=== PATIENT | female | born 1945 | race Caucasian/White ===

== ENCOUNTER 2016-04-21 14:55 | Emergency (ER) | payer OTHER ==
[~2016-04-21] VITALS: Ht 157.5 cm; Wt 87.0 kg
[2016-04-21 15:51] LABS: EOSINOPHIL (%) 0 % (0-5); HEMATOCRIT 41.8 % (36.0-46.0); IMMATURE GRANULOCYTE (%) 0.2 % (0.0-0.7); IMMATURE GRANULOCYTE COUNT 0.3 K/uL; LYMPHOCYTE COUNT 0.6 K/uL (1.0-2.8); MCV 97.2 FL (83-99); MEAN PLAT.VOLUME 11.4 uM^3 (9.5-12.4); MONOCYTE (%) 0.5 % (3-12); MONOCYTE COUNT 0.1 K/uL (0-0.8); NEUTROPHIL (%) 94.2 % (45-76); NEUTROPHIL COUNT 11.9 K/uL (1.8-6.4); PLATELET COUNT 220 K/uL (156-360); RBC DIS.WIDTH-CV 13.6 % (11.8-14.6); RBC DIS.WIDTH-SD 47.2 % (39-53); WHITE BLOOD COUNT 12.6 K/uL (4.1-10.2)
[2016-04-21 16:08] LABS: CHLORIDE 106 mEq/L (99-109); POTASSIUM 3.9 mEq/L (3.7-5.4); SODIUM 141 mEq/L (136-147)
[2016-04-21 16:11] LABS: GLUCOSE 204 mg/dL (70-99)
[2016-04-21 16:12] LABS: ANION GAP 14 MEQ/L (2-14); TOTAL BILIRUBIN 0.6 mg/dL (0.0-1.0)
[2016-04-21 16:14] LABS: ALKALINE PHOSPHATASE 51 IU/L (3-129); GFR ESTIMATE (CALCULATED) > 59 mL/min/
[2016-04-21 16:15] LABS: UREA NITROGEN (BUN) 15 mg/dL (9-23)
[2016-04-21 18:35] VITALS: BP 153/70
== END 2016-04-21 18:36 | disposition home or self-care (01) ==
LOC: EME 14:55
PROVIDERS: Emergency Medicine
DX: R11.2 Nausea with vomiting, unspecified (principal); Z98.890 Other specified postprocedural states; Z87.891 Personal history of nicotine dependence
CPT/HCPCS: 80053; 85025; 99281; 99285; J2765

== ENCOUNTER 2016-10-16 11:30 | Inpatient (IN) | payer OTHER ==
[~2016-10-16] VITALS: Ht 157.5 cm; Wt 91.5 kg
[2016-10-16 12:38] LABS: HEMATOCRIT 37.4 % (36.0-46.0); MCH 33.2 PG (29.0-34.0); MCHC 33.7 G/DL (30.0-36.0); MCV 98.4 FL (83-99); MEAN PLAT.VOLUME 11.4 uM^3 (9.5-12.4); PLATELET COUNT 210 K/uL (156-360); RBC DIS.WIDTH-CV 13.3 % (11.8-14.6); RBC DIS.WIDTH-SD 48.8 % (39-53); WHITE BLOOD COUNT 13.2 K/uL (4.1-10.2)
[2016-10-16 12:45] LABS: INTER. NORMALIZED RATIO 1.9; PROTHROMBIN TIME 21.3 SEC (10.2-12.9)
[2016-10-16 12:51] LABS: CHLORIDE 109 mEq/L (99-109); POTASSIUM 3.5 mEq/L (3.7-5.4); SODIUM 141 mEq/L (136-147)
[2016-10-16 12:53] LABS: GLUCOSE 121 mg/dL (70-99)
[2016-10-16 12:54] LABS: ANION GAP 11 MEQ/L (2-14)
[2016-10-16 12:56] LABS: GFR ESTIMATE (CALCULATED) > 59 mL/min/
[2016-10-16 12:57] LABS: UREA NITROGEN (BUN) 16 mg/dL (9-23)
[2016-10-16] MEDS ORDERED: XARELTO20 MG PO (16:53)
[2016-10-16] MEDS ORDERED: VITAMIN E400 UNIT PO (16:53)
[2016-10-16] MEDS ORDERED: CALCIUM 500 MG1 EACH PO (16:53)
[2016-10-16] MEDS ORDERED: BLOOD PRESSURE MED PO (16:53)
[2016-10-16] MEDS ORDERED: SYNTHROID50 MCG PO (16:53)
[2016-10-16] MEDS ORDERED: VITAMIN D31000 UNIT PO (16:53)
[2016-10-16] MEDS ORDERED: STOOL SOFTENER100 MG PO (16:54)
[2016-10-16 17:42] LABS: ADD MIUA? YES; BILIRUBIN NEGATIVE; BLOOD SMALL; COLOR YELLOW ((YELLOW)); GLUCOSE (STRIP) NEGATIVE; KETONES 5; LEUKOCYTES NEGATIVE; NITRITE NEGATIVE; PROTEIN (STRIP) NEGATIVE; UROBILINOGEN 0.2 MG/DL (0.2-1.0)
[2016-10-16 17:45] LABS: BACTERIA NONE SEEN /HPF; EPITHELIAL CELLS RARE /HPF; MUCUS TRACE /LPF; RED BLOOD CELLS 0-5 /HPF (0-5); WHITE BLOOD CELLS 0-5 /HPF (0-5)
[2016-10-16 18:15] LABS: TROP-I INTERPRETATION NEGATIVE; TROPONIN-I < 0.01 ng/mL (0.0-0.30)
[2016-10-16 21:22] VITALS: BP 129/78
[2016-10-16 23:57] VITALS: BP 121/61
[2016-10-17 03:30] VITALS: BP 118/60
[2016-10-17 07:08] LABS: HEMATOCRIT 33.7 % (36.0-46.0); MCH 33.3 PG (29.0-34.0); MCHC 33.8 G/DL (30.0-36.0); MCV 98.5 FL (83-99); RBC DIS.WIDTH-CV 13.4 % (11.8-14.6); RBC DIS.WIDTH-SD 48.3 % (39-53); RED BLOOD COUNT 3.42 M/uL (3.80-5.20); WHITE BLOOD COUNT 9.2 K/uL (4.1-10.2)
[2016-10-17 07:44] LABS: ANION GAP 5 MEQ/L (2-14); CHLORIDE 107 MEQ/L (99-109); GFR ESTIMATE (CALCULATED) > 59 mL/min/; GLUCOSE 104 mg/dL (70-99); MAGNESIUM 1.7 mg/dl (1.3-2.7); POTASSIUM 3.6 MEQ/L (3.7-5.4); SAMPLE HEMOLYSIS CHECK 0; SAMPLE ICTERIC CHECK 0; SAMPLE LIPEMIA CHECK 0; SODIUM 139 MEQ/L (136-147); UREA NITROGEN (BUN) 13 mg/dL (9-23)
[2016-10-17 07:47] LABS: MEAN PLAT.VOLUME 11.1 uM^3 (9.5-12.4); PLAT.SUFFICIENCY ADEQUATE; PLATELET COUNT 193 K/uL (156-360)
[2016-10-17 08:31] VITALS: BP 130/67
[2016-10-17 11:55] VITALS: BP 131/71
[2016-10-17 15:57] VITALS: BP 120/61
[2016-10-17 20:56] VITALS: BP 126/77
[2016-10-17 23:15] VITALS: BP 145/67
[2016-10-18 03:48] VITALS: BP 143/74
[2016-10-18 08:34] VITALS: BP 143/70
[2016-10-18 11:38] VITALS: BP 142/67
[2016-10-18 15:54] VITALS: BP 130/63
[2016-10-18 16:50] LABS: INTER. NORMALIZED RATIO 1.1; PROTHROMBIN TIME 11.8 SEC (10.2-12.9)
[2016-10-18 16:53] LABS: PTT 27.6 SEC (25-37)
[2016-10-18 19:59] VITALS: BP 143/70
[2016-10-19 04:26] VITALS: BP 146/72
[2016-10-19 08:21] VITALS: BP 119/67
[2016-10-19 12:10] VITALS: BP 105/65
[2016-10-19 16:42] VITALS: BP 107/59
[2016-10-19 19:05] VITALS: BP 117/56
[2016-10-19 23:05] VITALS: BP 108/57
[2016-10-20 02:41] VITALS: BP 126/68
[2016-10-20 08:02] VITALS: BP 116/62
[2016-10-20 11:52] VITALS: BP 117/68
[2016-10-20 15:45] VITALS: BP 108/56
[2016-10-20 19:09] VITALS: BP 106/57
[2016-10-20 23:39] VITALS: BP 110/54
[2016-10-21 04:00] VITALS: BP 120/57
[2016-10-21 07:59] VITALS: BP 125/61
[2016-10-21 11:24] VITALS: BP 124/59
[2016-10-21 16:16] VITALS: BP 111/59
[2016-10-21 19:29] VITALS: BP 129/62
[2016-10-21 23:59] VITALS: BP 137/74
[2016-10-22 04:29] VITALS: BP 127/84
[2016-10-22 08:00] VITALS: BP 137/77
[2016-10-22 11:21] VITALS: BP 128/60
[2016-10-22] MEDS ORDERED: ENDOCET 5-3251 EACH PO (15:32)
[2016-10-22] MEDS ORDERED: CARDIZEM CD,CA240 MG PO (15:32)
[2016-10-22 15:58] VITALS: BP 136/64
== END 2016-10-22 18:40 | DRG 481 ==
LOC: EME → EDBD 11:30 → 3EAST 16:43 → EDOF 16:43 → ENRESERV 16:45 → 3EAST 19:34
PROVIDERS: Anesthesiology; Internal Medicine; Physician Assistant Medical
DX: S72.012A Unspecified intracapsular fracture of left femur, initial encounter for closed fracture (principal); S52.572A Other intraarticular fracture of lower end of left radius, initial encounter for closed fracture; S52.602A Unspecified fracture of lower end of left ulna, initial encounter for closed fracture; S42.292A Other displaced fracture of upper end of left humerus, initial encounter for closed fracture; S01.112A Laceration without foreign body of left eyelid and periocular area, initial encounter; I10 Essential (primary) hypertension; I48.1 Persistent atrial fibrillation; E87.6 Hypokalemia; K22.70 Barrett's esophagus without dysplasia; E03.9 Hypothyroidism, unspecified; W01.0XXA Fall on same level from slipping, tripping and stumbling without subsequent striking against object, initial encounter; Y93.E2 Activity, laundry; Y92.008 Other place in unspecified non-institutional (private) residence as the place of occurrence of the external cause; Z79.01 Long term (current) use of anticoagulants; Z85.038 Personal history of other malignant neoplasm of large intestine; Z90.49 Acquired absence of other specified parts of digestive tract; Z90.81 Acquired absence of spleen; Z92.21 Personal history of antineoplastic chemotherapy; Z87.891 Personal history of nicotine dependence
CPT/HCPCS: 70450; 71010; 72125; 73030; 73100; 73110; 73200; 73502; 73560; 73700; 76000; 80048; 81003; 83735; 84484; 85027; 85610; 85730; 93005; 94799; 97530 GO; 99281; 99284; C1713; J0330; J0690; J1644; J2270; J2405; J2765; J3010; J3480; J7030

== ENCOUNTER 2017-08-09 16:36 | Emergency (ER) | payer OTHER ==
[~2017-08-09] VITALS: Ht 157.5 cm; Wt 92.0 kg
[~2017-08-09 16:36] MED LIST: BLOOD PRESSURE MED PO; CALCIUM 500 MG1 EACH PO; CARDIZEM CD,CA240 MG PO; ENDOCET 5-3251 EACH PO; STOOL SOFTENER100 MG PO; SYNTHROID50 MCG PO; VITAMIN D31000 UNIT PO; VITAMIN E400 UNIT PO; XARELTO20 MG PO
[2017-08-09 18:23] LABS: HEMATOCRIT 39.9 % (36.0-46.0); HEMOGLOBIN 13.8 G/DL (11.9-15.5); MCH 34.1 PG (29.0-34.0); MCHC 34.6 G/DL (30.0-36.0); MCV 98.5 FL (83-99); PLATELET COUNT 286 K/uL (156-360); RBC DIS.WIDTH-CV 13.3 % (11.8-14.6); RBC DIS.WIDTH-SD 48.9 % (39-53); RED BLOOD COUNT 4.05 M/uL (3.80-5.20); WHITE BLOOD COUNT 11.1 K/uL (4.1-10.2)
[2017-08-09 18:35] LABS: CHLORIDE 106 mEq/L (99-109); POTASSIUM 4.1 mEq/L (3.7-5.4); SODIUM 141 mEq/L (136-147)
[2017-08-09 18:37] LABS: GLUCOSE 109 mg/dL (70-99)
[2017-08-09 18:38] LABS: APPEARANCE CLEAR ((CLEAR)); BILIRUBIN NEGATIVE; BLOOD SMALL; COLOR YELLOW ((YELLOW)); GLUCOSE (STRIP) NEGATIVE; KETONES 5; LEUKOCYTES MODERATE; NITRITE NEGATIVE; PROTEIN (STRIP) 30; SPECIFIC GRAVITY 1.018 (1.000-1.030); UROBILINOGEN 0.2 MG/DL (0.2-1.0)
[2017-08-09 18:38] LABS: TOTAL PROTEIN 7.2 g/dL (6.4-8.3)
[2017-08-09 18:39] LABS: TOTAL BILIRUBIN 0.6 mg/dL (0.0-1.0)
[2017-08-09 18:41] LABS: ALKALINE PHOSPHATASE 61 IU/L (3-129); CREATININE 0.9 mg/dL (0.6-1.3); GFR ESTIMATE (CALCULATED) > 59 mL/min/
[2017-08-09 18:42] LABS: UREA NITROGEN (BUN) 11 mg/dL (9-23)
[2017-08-09 18:43] LABS: AST (GOT) 13 IU/L (2-34)
[2017-08-09 18:44] LABS: BACTERIA NONE SEEN /HPF; EPITHELIAL CELLS RARE /HPF; MUCUS TRACE /LPF; UCUL ADDED? YES; WHITE BLOOD CELLS 20-30 /HPF (0-5)
[2017-08-09 18:44] LABS: ALT (GPT) 15 IU/L (3-49); LIPASE 15 U/L (1.0-51.0)
[2017-08-09] MEDS ORDERED: CIPRO500 MG PO (21:56)
[2017-08-09] MEDS ORDERED: FLAGYL500 MG PO (21:56)
[2017-08-09] MEDS ORDERED: ZOFRAN ODT4 MG PO (21:57)
[2017-08-09 22:39] VITALS: BP 141/67
== END 2017-08-09 22:48 | disposition home or self-care (01) ==
LOC: EME 16:36
PROVIDERS: Physician Assistant
DX: K57.32 Diverticulitis of large intestine without perforation or abscess without bleeding (principal); K21.9 Gastro-esophageal reflux disease without esophagitis; I10 Essential (primary) hypertension; E03.9 Hypothyroidism, unspecified; F41.9 Anxiety disorder, unspecified; F32.9 Major depressive disorder, single episode, unspecified; Z85.038 Personal history of other malignant neoplasm of large intestine; Z90.49 Acquired absence of other specified parts of digestive tract; Z87.891 Personal history of nicotine dependence; Z88.1 Allergy status to other antibiotic agents; Z88.8 Allergy status to other drugs, medicaments and biological substances
CPT/HCPCS: 74177; 80053; 81003; 83690; 85027; 87086 GA; 99281; 99285; J2405